=== PATIENT | male | born 1965 | race Caucasian/White ===

== ENCOUNTER 2023-11-13 19:03 | Emergency (ER) | payer OTHER ==
--- NOTE | 2023-11-13 19:19 | ED ---
General Adult HPI - General Chief complaint: Chest Pain Stated complaint: chest pain Time Seen by Provider: 11/13/23 19:18 Source: patient Mode of arrival: ambulatory Limitations: no limitations - History of Present Illness Initial comments: Patient presents to the ED with his friend for evaluation. Patient states that he developed "squeezing" left-sided chest pain about 2-2.5 hours ago while walking in a mall. Patient states that he developed 2 subsequent brief episodes of chest pain, most recently about 1 hour ago. Patient denies having any chest pain or symptoms at this time. Patient denies any associated symptoms. Patient denies trauma or injury, radiation of this pain, fever or chills, headache, focal numbness/weakness/neuro deficit, neck/arm/jaw/back pain, pleuritic pain, cough or cold symptoms, dyspnea, palpitations, dizziness, abdominal pain, nausea/vomiting/diaphoresis, diarrhea, bloody or melanotic stool, dysuria or urinary symptoms, leg or calf swelling or pain, or any other symptoms or complaints. Patient states that he has a history of CAD/OR, and he states that he has 2 cardiac stents. - Related Data Allergies Allergy/AdvReac Type Severity Reaction Status Date / Time fluoxetine [From Prozac] Allergy Rash/Hives Verified 11/13/23 19:12 paroxetine [From Paxil] Allergy Nausea & Verified 11/13/23 19:12 Vomiting Review of Systems ROS Statement: Those systems with pertinent positive or pertinent negative responses have been documented in the HPI. ROS Other: All systems not noted in ROS Statement are negative. Past Medical History Past Medical History: Coronary Artery Disease (CAD), Hyperlipidemia, Hypertension, Myocardial Infarction (OR) History of Any Multi-Drug Resistant Organisms: None Reported Past Surgical History: Heart Catheterization With Stent Additional Past Surgical History / Comment(s): stent x 2 Past Psychological History: Depression, PTSD Smoking Status: Never smoker Past Alcohol Use History: None Reported Past Drug Use History: None Reported General Exam Limitations: no limitations General appearance: alert, in no apparent distress Eye exam: Present: normal appearance ENT exam: Present: mucous membranes moist Neck exam: Present: other (Trachea is in midline) Respiratory exam: Present: normal lung sounds bilaterally. Absent: respiratory distress, wheezes, rales, rhonchi, stridor, chest wall tenderness Cardiovascular Exam: Present: regular rate, normal rhythm, normal heart sounds, other (Normal radial pulses bilaterally) GI/Abdominal exam: Present: soft. Absent: distended, tenderness, guarding Extremities exam: Present: other (Negative Homans' sign bilaterally). Absent: tenderness, pedal edema, calf tenderness Neurological exam: Present: alert, oriented X3 Psychiatric exam: Present: normal affect Skin exam: Present: warm, dry, normal color Course Vital Signs 11/13/23 11/13/23 11/13/23 19:07 20:00 21:00 Temperature 98.6 F Pulse Rate 65 59 L 58 L Respiratory 16 15 19 Rate Blood Pressure 160/113 149/102 147/90 O2 Sat by Pulse 99 94 L 95 Oximetry 11/13/23 22:00 Temperature Pulse Rate 57 L Respiratory 13 Rate Blood Pressure 110/86 O2 Sat by Pulse 95 Oximetry - Reevaluation(s) Reevaluation #1: 11/13/23 22:39 Patient remains in normal sinus rhythm on the automation architect. Patient co ntinues to be breathing comfortably with a normal room her oxygen saturation. Patient continues to deny having any chest pain or symptoms while in the ED. Patient has had 2 negative troponins drawn over 2 hours apart while in the ED. The rest of the patient's labs are fairly unremarkable. Patient's EKG is also fairly unremarkable, as is his chest x-ray. I discussed hospital admission for serial troponins and cardiology consultation with the patient, but he declines at this time, stating that he will follow-up closely with his car carder (Dr. Mcclain). He feels comfortable being discharged home at this time. He was counseled about chest pain, and he was clearly explained return and follow-up instructions. Strict return instructions were provided. Will discharge patient home at this time. EKG Findings - EKG Comments: EKG Findings:: ED physician interpretation (interpreted by me): Sinus rhythm with first-degree AV block, ventricular rate of 65 bpm, no ectopy, [place] interval of 218 ms, normal QRS duration, normal QT interval, normal axis, no ST or T wave abnormality Medical Decision Making - Medical Decision Making Was pt. sent in by a medical professional or institution (, PA, FIXTURE MAKER, urgent care, hospital, or longterm...) When possible be specific @ -No Did you speak to anyone other than the patient for history (EMS, parent, family, police, friend...)? What history was obtained from this source @ -No Did you review nursing and triage notes (agree or disagree)? Why? @ -I reviewed and agree with nursing and triage notes Were old charts reviewed (outside hosp., previous admission, EMS record, old EKG, old radiological studies, urgent care reports/EKG's, longterm records)? Report findings @ -No old charts were reviewed Differential Diagnosis (chest pain, altered mental status, abdominal pain women, abdominal pain men, vaginal bleeding, weakness, fever, dyspnea, syncope, headache, dizziness, GI bleed, back pain, seizure, CVA, palpatations, mental health, musculoskeletal)? @ -Differential Chest Pain: Stable Angina, Unstable Angina, STEMI, NSTEMI, pleural effusion, pneumothorax, Musculoskeletal, Esophageal Spasm, GERD, anxiety, this is not meant to be an all-inclusive list. EKG interpreted by me (3pts min.). @ -As above X-rays interpreted by me (1pt min.). @ -Chest x-ray was reviewed myself and shows no acute abnormality. I agree with the radiologist's interpretation as above. CT interpreted by me (1pt min.). @ -None done U/S interpreted by me (1pt. min.). @ -None done What testing was considered but not performed or refused? (CT, X-rays, U/S, labs)? Why? @ -None What meds were considered but not given or refused? Why? @ -None Did you discuss the management of the patient with other professionals (professionals i.e. , PA, FIXTURE MAKER, lab, RT, psych nurse, sr. social media & mobile manager, licensed nuclear operator, teacher, parcel post officer, casework specialist)? Give summary @ -No Was smoking cessation discussed for >3mins.? @ -No Was critical care preformed (if so, how long)? @ -No Were there social determinants of health that impacted care today? How? (Homelessness, low income, unemployed, alcoholism, drug addiction, transportation, low edu. Level, literacy, decrease access to med. care, care home, rehab)? @ -No Was there de-escalation of care discussed even if they declined (Discuss DNR or withdrawal of care, Hospice)? DNR status @ -No What co-morbidities impacted this encounter? (DM, HTN, Smoking, COPD, CAD, Cancer, CVA, ARF, Chemo, Hep., AIDS, mental health diagnosis, sleep apnea, morbid obesity)? @ -None Was patient admitted / discharged? Hospital course, mention meds given and route, prescriptions, significant lab abnormalities, going to OR and other pertinent info. @ -Patient's EKG and chest x-ray are fairly unremarkable. Patient has had 2 negative troponins drawn over 2 hours apart while in the ED. The rest of the patient's labs are also fairly unremarkable. I have discussed hospital admission for serial troponins and cardiology consultation with the patient, but he declines, stating that he will follow-up closely with his car carder (Dr. Mcclain). Patient feels comfortable being discharged home at this time. Patient was provided with strict return and follow-up instructions. Patient feels comfortable with this plan. Undiagnosed new problem with uncertain prognosis? @ -No Drug Therapy requiring intensive monitoring for toxicity (Heparin, Nitro, Insulin, Cardizem)? @ -No Were any procedures done? @ -No Diagnosis/symptom? @ -Chest pain Acute, or Chronic, or Acute on Chronic? @ -Acute Uncomplicated (without systemic symptoms) or Complicated (systemic symptoms)? @ -Default Side effects of treatment? @ -No Exacerbation, Progression, or Severe Exacerbation? @ -No Poses a threat to life or bodily function? How? (Chest pain, USA, OR, pneumonia, PE, COPD, DKA, ARF, appy, cholecystitis, CVA, Diverticulitis, Homicidal, Suicidal, threat to staff... and all critical care pts) @ -No - Lab Data Result diagrams: 11/13/23 19:28 11/13/23 19:28 Lab Results 11/13/23 11/13/23 11/13/23 Range/Units 19:28 19:28 19:28 WBC 8.2 (3.8-10.6) k/uL RBC 4.97 (4.30-5.90) m/uL Hgb 14.7 (13.0-17.5) gm/dL Hct 43.2 (39.0-53.0) % MCV 87.0 (80.0-100.0) fL MCH 29.6 (25.0-35.0) pg MCHC 34.0 (31.0-37.0) g/dL RDW 13.3 (11.5-15.5) % Plt Count 223 (150-450) k/uL MPV 9.0 Neutrophils % 59 % Lymphocytes % 26 % Monocytes % 6 % Eosinophils % 6 % Basophils % 1 % Neutrophils # 4.8 (1.3-7.7) k/uL Lymphocytes # 2.1 (1.0-4.8) k/uL Monocytes # 0.5 (0-1.0) k/uL Eosinophils # 0.5 (0-0.7) k/uL Basophils # 0.1 (0-0.2) k/uL PT 10.6 (10.0-12.5) sec INR 1.0 (<1.2) APTT 26.5 (22.0-30.0) sec Sodium 137 (137-145) mmol/L Potassium 3.8 (3.5-5.1) mmol/L Chloride 102 (98-107) mmol/L Carbon Dioxide 27 (22-30) mmol/L Anion Gap 8 mmol/L BUN 20 (9-20) mg/dL Creatinine 1.04 (0.66-1.25) mg/dL Est GFR (CKD-EPI)AfAm >90 (>60 ml/min/1.73 sqM) Est GFR (CKD-EPI)NonAf 80 (>60 ml/min/1.73 sqM) Glucose 100 H (74-99) mg/dL Calcium 9.5 (8.4-10.2) mg/dL Magnesium 1.9 (1.6-2.3) mg/dL Total Bilirubin 0.6 (0.2-1.3) mg/dL AST 32 (17-59) U/L ALT 27 (4-49) U/L Alkaline Phosphatase 67 (38-126) U/L Troponin I (0.000-0.034) ng/mL NT-Pro-B Natriuret Pep 75 pg/mL Total Protein 8.0 (6.3-8.2) g/dL Albumin 4.5 (3.5-5.0) g/dL 11/13/23 11/13/23 Range/Units 19:28 22:02 WBC (3.8-10.6) k/uL RBC (4.30-5.90) m/uL Hgb (13.0-17.5) gm/dL Hct (39.0-53.0) % MCV (80.0-100.0) fL MCH (25.0-35.0) pg MCHC (31.0-37.0) g/dL RDW (11.5-15.5) % Plt Count (150-450) k/uL MPV Neutrophils % % Lymphocytes % % Monocytes % % Eosinophils % % Basophils % % Neutrophils # (1.3-7.7) k/uL Lymphocytes # (1.0-4.8) k/uL Monocytes # (0-1.0) k/uL Eosinophils # (0-0.7) k/uL Basophils # (0-0.2) k/uL PT (10.0-12.5) sec INR (<1.2) APTT (22.0-30.0) sec Sodium (137-145) mmol/L Potassium (3.5-5.1) mmol/L Chloride (98-107) mmol/L Carbon Dioxide (22-30) mmol/L Anion Gap mmol/L BUN (9-20) mg/dL Creatinine (0.66-1.25) mg/dL Est GFR (CKD-EPI)AfAm (>60 ml/min/1.73 sqM) Est GFR (CKD-EPI)NonAf (>60 ml/min/1.73 sqM) Glucose (74-99) mg/dL Calcium (8.4-10.2) mg/dL Magnesium (1.6-2.3) mg/dL Total Bilirubin (0.2-1.3) mg/dL AST (17-59) U/L ALT (4-49) U/L Alkaline Phosphatase (38-126) U/L Troponin I <0.012 <0.012 (0.000-0.034) ng/mL NT-Pro-B Natriuret Pep pg/mL Total Protein (6.3-8.2) g/dL Albumin (3.5-5.0) g/dL - Radiology Data Chest x-ray: No acute chest findings. Disposition Clinical Impression: Chest pain Disposition: HOME SELF-CARE Condition: Stable Instructions (If sedation given, give patient instructions): Chest Pain (ED) Additional Instructions: Return to the ER immediately should you develop new or worsening pain, shortness of breath, feeling dizzy or faint, or new or worsening symptoms. Follow-up closely with your primary care provider and/or car carder. Is patient prescribed a controlled substance at d/c from ED?: No Referrals: [facility] [Primary Care Provider] - 1-2 days Malick Mcclain MD [STAFF PHYSICIAN] - 1-2 days Time of Disposition: 22:41
[2023-11-13 19:22] VITALS: TEMP 98.6
[2023-11-13 19:35] LABS: Basophils # (A) 0.1 k/uL (0-0.2); Basophils % (A) 1 %; Eosinophils # (A) 0.5 k/uL (0-0.7); Eosinophils % (A) 6 %; HCT 43.2 % (39.0-53.0); HGB 14.7 gm/dL (13.0-17.5); Lymphocytes # (A) 2.1 k/uL (1.0-4.8); Lymphocytes % (A) 26 %; MCH 29.6 pg (25.0-35.0); Monocytes # (A) 0.5 k/uL (0-1.0); Monocytes % (A) 6 %; Neutrophils # (A) 4.8 k/uL (1.3-7.7); Neutrophils % (A) 59 %; Platelet Count 223 k/uL (150-450); RBC 4.97 m/uL (4.30-5.90); RDW 13.3 % (11.5-15.5); WBC 8.2 k/uL (3.8-10.6)
[2023-11-13 19:48] LABS: ALT 27 U/L (4-49); AST 32 U/L (17-59); African American GFR (CKD) >90 (>60 ml/min/1.73 sqM); Albumin 4.5 g/dL (3.5-5.0); Alkaline Phosphatase 67 U/L (38-126); Anion Gap 8 mmol/L; Blood Urea Nitrogen 20 mg/dL (9-20); Calcium 9.5 mg/dL (8.4-10.2); Carbon Dioxide 27 mmol/L (22-30); Chloride 102 mmol/L (98-107); Glucose 100 mg/dL (74-99); Magnesium 1.9 mg/dL (1.6-2.3); Non-African American GFR(CKD) 80 (>60 ml/min/1.73 sqM); Potassium 3.8 mmol/L (3.5-5.1); Sodium 137 mmol/L (137-145); Total Bilirubin 0.6 mg/dL (0.2-1.3)
[2023-11-13 19:57] LABS: NT-Pro-B-Type Natriuretic Pept 75 pg/mL; Partial Thromboplastin Time 26.5 sec (22.0-30.0); Prothrombin Time 10.6 sec (10.0-12.5)
--- NOTE | 2023-11-13 20:00 | XR ---
EXAMINATION TYPE: XR chest 2V DATE OF EXAM: 11/13/2023 7:44 PM CLINICAL INDICATION:Male, 58 years old with history of Chest Pain; H COMPARISON: None TECHNIQUE: XR chest 2V. Frontal and lateral views of the chest.. FINDINGS: EKG leads over the chest. Cardiac silhouette is within normal limits. Mildly tortuous partially calci fied aorta. Central airways appear patent. No significant bone or vascular congestion. No pleural eff usion, pneumothorax, or focal lung consolidation. Minimal left basilar subsegmental atelectasis. Mild degenerative changes of the spine and shoulders. No evidence of acute bony pathology. IMPRESSION: No acute chest findings.
[2023-11-13] MEDS: ASPIRIN 81 MG PO STA (20:59)
[2023-11-13 23:07] VITALS: BP 108/78; PULSE 56; RESP 21
== END 2023-11-13 22:49 | disposition home or self-care (01) ==
LOC: EC 19:03
DX: R07.89 Other chest pain (principal); I10 Essential (primary) hypertension; I25.10 Atherosclerotic heart disease of native coronary artery without angina pectoris; I25.2 Old myocardial infarction; Z88.8 Allergy status to other drugs, medicaments and biological substances; Z86.59 Personal history of other mental and behavioral disorders; Z95.5 Presence of coronary angioplasty implant and graft
CPT/HCPCS: 36415; 71046; 80053; 83735; 83880; 84484; 85025; 85610; 85730; 93005; 99285

== ENCOUNTER → 2024-10-10 | Outpatient (CLI) | payer OTHER ==
--- NOTE | 2024-10-10 16:30 | CT ---
CT urogram with and without contrast HISTORY: Recent diagnosis of bladder cancer. COMPARISON: None TECHNIQUE: Multiple axial images are obtained through the abdomen and pelvis before and after the une ventful administration of nonionic IV contrast material. Postcontrast delayed images were obtained. FINDINGS: Lung bases are clear. On the pre-IV contrast images, there are no renal calcifications or ureteral calcifications. There a re no gallstones. The gallbladder is normal and there is no distention or biliary ductal dilatation. There are no focal masses within the liver, pancreas, spleen or adrenal glands and there is no organo megaly. Kidneys excrete contrast promptly and symmetrically and there is no solid renal mass, hydronephrosis or filling defect within the renal collecting systems, ureters or urinary bladder. There is focal thi ckening of the right urinary bladder wall which could correspond to the patient's known bladder cance r. The bowel loops are normal in caliber and there is no dilatation or obstruction. No inflammatory groves ges are identified in the bowel wall or mesentery. There is no free intraperitoneal air or fluid. There is no free fluid, abscess or adenopathy within the pelvis. The osseous structures are intact. IMPRESSION: Focal thickening in the right aspect of the urinary bladder wall which could represent patient's know n bladder cancer. No other significant abnormality seen within the abdomen or pelvis. [facility], Workstation: MARIA D, 10/10/2024 4:27 PM
== END | disposition home or self-care (01) ==
LOC: RADCTMAIN 14:30
PROVIDERS: ATTEND Internal Medicine Hematology & Oncology
DX: C67.2 Malignant neoplasm of lateral wall of bladder (principal)
CPT/HCPCS: 74178; 74400; Q9967

== ENCOUNTER → 2024-10-17 | Outpatient (CLI) | payer OTHER ==
--- NOTE | 2024-10-17 15:07 | CT ---
EXAMINATION TYPE: CT chest w con DATE OF EXAM: 10/17/2024 12:52 PM COMPARISON: None. CLINICAL INDICATION: Male, 59 years old with history of C67.2 CANCER WALL OF BLADDER, bladder cancer obs for mets TECHNIQUE: Axial images were obtained at 5 mm thick sections. Reconstructed images are reviewed on [employer] computer in the coronal plane. Contrast used:100 mL of Isovue 300 with IV Contrast, (none if empty) Oral contrast used: (none if empty) CT DLP: 620 mGycm, Automated exposure control for dose reduction was used. FINDINGS: Portion of the thyroid visualized is normal. No suspicious lung nodules or focal infiltrates are present. There is a punctate density within the p eriphery of the right midlung. Series 4 image 29. No enlarged mediastinal or hilar adenopathy is evident. The ascending aorta diameter at the level o f the main pulmonary artery is 3.8 cm. The main pulmonary artery diameter at the bifurcation is 2.[address] sections are obtained through the upper abdomen. Abdomen is essentially unremarkable. IMPRESSION: 1. No suspicious changes to suggest metastatic disease. [facility], , 10/17/2024 3:05 PM
== END | disposition home or self-care (01) ==
LOC: RADCTMAIN 12:11
PROVIDERS: ATTEND Internal Medicine Hematology & Oncology
DX: C67.2 Malignant neoplasm of lateral wall of bladder (principal); F10.120 Alcohol abuse with intoxication, uncomplicated; F43.10 Post-traumatic stress disorder, unspecified; I10 Essential (primary) hypertension
CPT/HCPCS: 71260; Q9967

== ENCOUNTER → 2024-12-01 | Outpatient (CLI) | payer OTHER ==
--- NOTE | 2024-12-01 12:30 | US ---
EXAMINATION TYPE: US venous doppler duplex UE LT DATE OF EXAM: 12/01/2024 COMPARISON: NONE CLINICAL INDICATION: Male, 59 years old with history of M79.662 PAIN IN LEFT LOWER LEG; Pain in Lt ar m, swelling, Pt had recent blood draw at area of complaint TECHNIQUE: Grayscale, color Doppler and spectral Doppler imaging of the upper extremity. SIDE PERFORMED: Left VESSELS IMAGED: IJV Subclavian Vein Axilla Vein Brachial Vein(s) Radial Paired Veins Ulnar Paired Veins Cephalic Vein* Basilic Vein* (*superficial vessels) FINDINGS: Left Arm: There appears to be internal echos that do not compress at the Lt Basilic V Grayscale, color doppler, spectral doppler imaging performed of the deep veins of the upper extremiti es. IMPRESSION: Acute superficial venous thrombosis in the left basilic vein is felt present. [facility], , 12/01/2024 12:28 PM
== END | disposition home or self-care (01) ==
LOC: RADUSWWP 10:45
PROVIDERS: ATTEND Internal Medicine Hematology & Oncology
DX: Z03.89 Encounter for observation for other suspected diseases and conditions ruled out (principal); I82.612 Acute embolism and thrombosis of superficial veins of left upper extremity